=== PATIENT | female | born 1950 | race Caucasian/White ===

== ENCOUNTER 2017-03-03 10:09 | Outpatient (CLI) | payer MEDICARE, OTHER ==
--- NOTE | 2017-03-04 16:09 | Mammography Report ---
DIGITAL SCREENING MAMMOGRAM: 03/03/2017 CLINICAL INDICATION: A 66-year-old, for screening. COMPARISON: 10/2012, 09/2009. TECHNIQUE: Routine CC and MLO projections were obtained of the breasts. FINDINGS: Parenchymal tissue within the breasts is predominantly fatty replaced. There are no domina nt masses, suspicious microcalcifications, or secondary signs of malignancy. In comparison to the pre vious studies, there are no significant changes. IMPRESSION: NO MAMMOGRAPHIC EVIDENCE OF MALIGNANCY. NO SIGNIFICANT INTERVAL CHANGES. RECOMMENDATION: Screening mammography is recommended annually. BIRADS category 1 - negative. STANDARD QUALIFYING STATEMENTS 1. This examination was reviewed with the aid of Computed-Aided Detection (CAD). 2. A negative or benign imaging report should not delay biopsy if clinically suspicious findings are present. Consider surgical consultation if warranted. More than 5% of cancers are not identified by i maging. 3. Dense breasts may obscure an underlying neoplasm. JOB #: [id number] EXT JOB #:[id number]
== END 2017-03-03 10:10 | disposition home or self-care (01) ==
LOC: DI.N 10:09
PROVIDERS: ATTEND Family Medicine
DX: Z12.31 Encounter for screening mammogram for malignant neoplasm of breast (principal)
CPT/HCPCS: 77067

== ENCOUNTER 2017-03-19 07:01 | Day surgery (SDC) | payer MEDICARE, OTHER ==
[2017-03-19] MEDS ORDERED: LACTATED RINGERS 1,000 ML IV ONE (07:38)
[2017-03-19] MEDS ORDERED: BENZOCAINE/TETRACAINE/BUTAMBEN SPRAY 56 GM TOP ONE (08:09)
[2017-03-19] MEDS ORDERED: PROPOFOL 200 MG/20 ML VIAL IVP ONE (08:40)
[2017-03-19] MEDS ORDERED: LIDOCAINE-MPF 2% 5 ML VIAL IM ONE (08:40)
[2017-03-19] MEDS ORDERED: ePHEDrine 50 MG/ML AMP IVP ONE (08:40)
[2017-03-19 09:58] VITALS: BP 146/60
== END 2017-03-19 07:02 | disposition home or self-care (01) ==
LOC: SDS 07:01
PROVIDERS: ATTEND Surgery
PROC: 0DB68ZX Excision of Stomach, Via Natural or Artificial Opening Endoscopic, Diagnostic (ICD-10-PCS; 2017-03-19)
PROC: 0DB38ZX Excision of Lower Esophagus, Via Natural or Artificial Opening Endoscopic, Diagnostic (ICD-10-PCS; 2017-03-19)
PROC: 0DJD8ZZ Inspection of Lower Intestinal Tract, Via Natural or Artificial Opening Endoscopic (ICD-10-PCS; principal; 2017-03-19 08:15)
PROC: 0DB48ZX Excision of Esophagogastric Junction, Via Natural or Artificial Opening Endoscopic, Diagnostic (ICD-10-PCS; 2017-03-19 08:15)
DX: D64.9 Anemia, unspecified (principal); K25.9 Gastric ulcer, unspecified as acute or chronic, without hemorrhage or perforation; K44.9 Diaphragmatic hernia without obstruction or gangrene; K20.9 Esophagitis, unspecified; K57.30 Diverticulosis of large intestine without perforation or abscess without bleeding; K64.8 Other hemorrhoids; K64.4 Residual hemorrhoidal skin tags; E03.9 Hypothyroidism, unspecified; E11.9 Type 2 diabetes mellitus without complications; E78.5 Hyperlipidemia, unspecified; I10 Essential (primary) hypertension
CPT/HCPCS: 43239; 45378; 88305; A9270; J7120

== ENCOUNTER 2017-05-11 12:35 | Outpatient (CLI) | payer MEDICARE, OTHER ==
--- NOTE | 2017-05-11 16:29 | Ultrasound Report ---
RETROPERITONEAL ULTRASOUND: 05/11/2017 CLINICAL INDICATION: Stage III kidney disease. TECHNIQUE: Real-time sonographic vascular imaging was performed by the dairy clerk through the retrop eritoneum utilizing both color-flow and Doppler spectral analysis. Multiple environmental marketing representative static im ages were saved for review. FINDINGS: The right kidney measures 10.1 x 5.2 x 4.4 cm, and the left kidney measures 9.8 x 4.9 x 4. 4 cm. No hydronephrosis is present. Renal cortical echotexture is normal bilaterally. No focal lesion is seen. Prevoid, the bladder measures 7.2 x 6.2 x 5.5 cm, yielding a prevoid volume of 129 mL. Bilateral uret eral jets are visualized. No postvoid residual is present. IMPRESSION: NORMAL RENAL ULTRASOUND. JOB #: [id number] EXT JOB #:[id number]
== END 2017-05-11 12:36 | disposition home or self-care (01) ==
LOC: DI 12:35
PROVIDERS: ATTEND Internal Medicine Nephrology
DX: N18.3 Chronic kidney disease, stage 3 (moderate) (principal)
CPT/HCPCS: 76770

== ENCOUNTER 2020-06-01 07:54 | Outpatient (CLI) | payer MEDICARE, OTHER ==
--- NOTE | 2020-06-04 09:47 | Mammography Report ---
BILATERAL DIGITAL SCREENING MAMMOGRAM 3D/2D: 06/01/2020 CLINICAL: Routine screening. Comparison is made to exams dated: 03/03/2017 mammogram, 11/17/2012 mammogram, and 10/22/2009 mammogram - [facility]. The tissue of both breasts is predominantly fatty. No significant masses, calcifications, or other findings are seen in either breast. There has been no significant interval change. IMPRESSION: NEGATIVE There is no mammographic evidence of malignancy. A 1 year screening mammogram is recommended. This exam was interpreted at Station ID: [id number]. NOTE: For mammograms, a report in lay terms will be sent to the patient. Approximately 15% of breast malignancies will not be visualized mammographically. In the management of a palpable breast mass, a negative mammogram must not discourage biopsy of a clinically suspicious lesion. Electronically Signed By: Neftaly Cee M.D. aty/penrad:06/01/2020 08:53:27 ACR BI-RADS Category 1: Negative 3341F PARENCHYMAL PATTERN: (F) - The breast(s) demonstrate(s) diffuse fatty replacement. BI-RADS CATEGORY: (1) - 1 RECOMMENDATION: (ANNUAL) - Recommend routine annual screening mammography. [id number] 1 year screening LATERALITY: (B)
== END 2020-06-01 07:55 | disposition home or self-care (01) ==
LOC: DI.N 07:54
PROVIDERS: ATTEND Physician Assistant Medical
DX: Z12.31 Encounter for screening mammogram for malignant neoplasm of breast (principal)

== ENCOUNTER 2020-11-21 07:07 | Outpatient (CLI) | payer MEDICARE, OTHER ==
--- NOTE | 2020-11-21 12:05 | CARDIAC PROCEDURE NOTE ---
Stress Test Report Service Date: 11/21/20 Ordering Provider: LOIS Colbert Indication for Test: Fatigue, exertional dyspnea Cardiac Risk Factors: Postmenopausal status, hypertension, diabetes mellitus, hyperlipidemia, family history of early heart disease. Type of Stress Test: Exercise Treadmill Test (ETT) Procedure: After signing informed consent, the patient underwent a Rober-protocol treadmill stress test. No cardiac imaging was ordered but this test. Resting heart rate: 99 Peak HR: 130 (87% predicted maximum heart rate for age) Resting BP: 220/58, patient was allowed to rest until BP improved and the BP cuff adjust and NEW resting BP: 163/59 (despite taking all her usual BP meds) Peak BP: 197/56 Resting O2 saturation: 97% on room air Exercise O2 sat: 82-87% on room air The patient exercised for 4 minutes on a Rober-protocol treadmill stress test. She achieved a peak heart rate of 130 (87% p.m. HR) and 5.85 METS. The patient had no chest pain. She developed shortness of breath easily and was moderately short of breath at peak. She reported her perceived exertion at 16/20 on the Maxwell scale at peak. O2 sat dropped significantly with exercise. Resting EKG: Normal sinus rhythm, rate 99, RSR' in V1 (suggests RV overload or Cor pulmonale). EKG at peak: Non-specific upsloping ST segment depressions inferolaterally. Summary: 1) Resting EKG is abnormal, suggesting right heart overload. 2) No specific changes for coronary ischemia develop by EKG criteria. 3) Significant oxygen desaturation occurs with exercise. 4) Poor exercise tolerance. 5) No cardiac imaging was ordered with this test. IMPRESSION: 1) Negative stress test for coronary ischemia (by EKG criteria). 2) The combination of oxygen desaturation during exercise, and cor pulmonale suspected by EKG, suggest lung disease. 3) This patient's overall cardiac risk: Moderate. RECOMMENDATIONS: 1) PFTs and other pulmonary work-up. 2) Consider referral to Pulmonology. 3) If indicated, a stress test WITH cardiac imaging could be re-checked.
== END 2020-11-21 07:08 | disposition home or self-care (01) ==
LOC: DI 07:07
PROVIDERS: ATTEND Physician Assistant Medical
DX: R06.09 Other forms of dyspnea (principal); R53.83 Other fatigue
CPT/HCPCS: 93306

== ENCOUNTER 2021-09-02 10:38 | Outpatient (CLI) | payer MEDICARE, OTHER ==
--- NOTE | 2021-09-03 01:08 | DEXA Report ---
PROCEDURE: Dexa Spine and/or Hip INDICATIONS: OSTEOPENIA, POST MENOPAUSAL TECHNIQUE: Dual energy x-ray absorptiometry (DXA) was performed on a All Def Digital System. Regions measur ed are the AP Spine, femoral neck, and if needed forearm. COMPARISON: 08/12/2010, . FINDINGS: Lumbar Spine: Bone Mineral Density 1.116 g/cm/cm,T score -0.5, bone density within normal limits. Findings are i mproved from the prior study which demonstrated T score of -2.1. Left Hip: Bone Mineral Density 0.895 g/cm/cm,T score -0.9, lower limits of normal bone density. Decreased dens ity compared to the prior study which demonstrated T score of -0.5. Left Femoral Neck: Bone Mineral Density 0.762 g/cm/cm, T score -2.0, osteopenia. Decreased density compared to the prio r study which demonstrated T score -1.8. (T score greater or equal to -1.0: NORMAL) (T score from -1.1 to -2.4: OSTEOPENIA) (T score less than or equal to -2.5 to: OSTEOPOROSIS) Impression: 1. Interval improved bone mineralization within the lumbar spine which appears within normal limits. 2. Osteopenia in the left femoral neck and borderline osteopenia overall in the left hip, with interv al decrease in density compared to the prior study. Patients with diagnosis of osteoporosis or osteopenia should have regular bone mineral density assess ment. For those eligible for Medicare, routine testing is allowed once every 2 years. Testing frequ ency can be increased for patients who have rapidly progressing disease or for those who are receivin g medical therapy to restore bone mass. Reviewed by: King Meza MD on 09/03/2021 1:07 AM PST Approved by: King Meza MD on 09/03/2021 1:07 AM PST Station ID: [id number]
== END 2021-09-02 10:39 | disposition home or self-care (01) ==
LOC: DI 10:38
PROVIDERS: ATTEND Physician Assistant
DX: Z78.0 Asymptomatic menopausal state (principal); M85.89 Other specified disorders of bone density and structure, multiple sites

== ENCOUNTER 2022-12-04 14:38 | Outpatient (CLI) | payer MEDICARE, OTHER ==
[2022-12-04 15:10] LABS: ALBUMIN 4.1 g/dL (3.2-5.5); ALBUMIN/GLOBULIN RATIO 1.2 (1.0-2.2); BILIRUBIN,TOTAL 0.5 mg/dL (0.2-1.0); CALCIUM 9.4 mg/dL (8.5-10.3); CREATININE 1.9 mg/dL (0.4-1.0); POTASSIUM 5.3 mmol/L (3.5-5.0); TOTAL PROTEIN 7.4 g/dL (6.7-8.2)
== END 2022-12-04 14:39 | disposition home or self-care (01) ==
LOC: LAB 14:38
DX: E87.5 Hyperkalemia (principal)
CPT/HCPCS: 36415; 80053

== ENCOUNTER 2023-06-01 10:26 | Outpatient (CLI) | payer MEDICARE, OTHER ==
[2023-06-01 11:50] LABS: BASOPHILS # (AUTO) 0.1 10^3/uL (0.0-0.1); EOSINOPHILS # (AUTO) 0.2 10^3/uL (0.0-0.7); EOSINOPHILS % (AUTO) 2.6 %; HCT - HEMATOCRIT 35.5 % (37.0-47.0); HGB - HEMOGLOBIN 11.1 g/dL (12.0-16.0); LYMPHOCYTES # (AUTO) 2.2 10^3/uL (1.5-3.5); LYMPHOCYTES % (AUTO) 26.7 %; MEAN CORPUSCULAR HEMOGLOBIN 30.7 pg (27.0-31.0); MEAN CORPUSCULAR HGB CONC 31.3 g/dL (32.0-36.0); MEAN CORPUSCULAR VOLUME 98.3 fL (81.0-99.0); MEAN PLATELET VOLUME 11.6 fL (7.9-10.8); MONOCYTES # (AUTO) 0.6 10^3/uL (0.0-1.0); MONOCYTES % (AUTO) 7.2 %; NEUTROPHILS # (AUTO) 5.1 10^3/uL (1.5-6.6); NEUTROPHILS % (AUTO) 62.3 %; PLT - PLATELET COUNT 219 10^3/uL (130-450); RED BLOOD COUNT 3.61 10^6/uL (4.20-5.40); RED CELL DISTRIBUTION WIDTH 12.6 % (12.0-15.0); WHITE BLOOD COUNT 8.2 x10^3/uL (4.8-10.8)
[2023-06-01 12:30] LABS: ESTIMATED AVERAGE GLUCOSE 154 mg/dL (70-100)
[2023-06-01 12:40] LABS: THYROID STIMULATING HORMONE 2.04 uIU/mL (0.34-5.60)
[2023-06-01 12:47] LABS: FERRITIN 49.1 ng/mL (11.0-306.8)
[2023-06-01 12:54] LABS: % IRON SATURATION 17 % (20-50); ALBUMIN 4.3 g/dL (3.2-5.5); ALBUMIN/GLOBULIN RATIO 1.7 (1.0-2.2); ALKALINE PHOSPHATASE 53 IU/L (42-121); ALT ALANINE AMINOTRANSFERASE 9 IU/L (10-60); AST ASPARTATE AMINOTRANSFERASE 13 IU/L (10-42); BILIRUBIN,TOTAL 0.5 mg/dL (0.2-1.0); BUN - BLOOD UREA NITROGEN 40 mg/dL (6-20); CALCIUM 10.3 mg/dL (8.5-10.3); CARBON DIOXIDE - CO2 27 mmol/L (21-32); CHLORIDE 102 mmol/L (101-111); CHOL/HDL RATIO 2.9 (<4.4); CHOLESTEROL 178 mg/dL; CREATININE 1.9 mg/dL (0.6-1.3); GFR - MDRD 26 (>89); GLUCOSE 168 mg/dL (74-104); HDL CHOLESTEROL 62 mg/dL; IRON 57 ug/dL (50-212); LDL CHOLESTEROL,CALCULATED 80 mg/dL; LDL/HDL RATIO 1.3 (<4.4); POTASSIUM 4.9 mmol/L (3.5-4.5); SODIUM 137 mmol/L (135-145); TOTAL IRON BINDING CAPACITY 340 ug/dL (250-450); TOTAL PROTEIN 6.8 g/dL (6.4-8.9); TRANSFERRIN 243 mg/dL (203-362); TRIGLYCERIDES 178 mg/dL (48-352); VLDL CHOLESTEROL 36 mg/dL
[2023-06-01 18:15] LABS: CREATININE,URINE 181.8 mg/dL; MICROALBUM/CREATININE RATIO,UR 79.2 ug/mg (<30.0); MICROALBUMIN,URINE 14.4 mg/dL
== END 2023-06-01 10:27 | disposition home or self-care (01) ==
LOC: LAB.N 10:26
PROVIDERS: ATTEND Nurse Practitioner
DX: E11.9 Type 2 diabetes mellitus without complications (principal); D64.9 Anemia, unspecified; E03.9 Hypothyroidism, unspecified
CPT/HCPCS: 36415; 80053; 80061; 82043; 82570; 82607; 82728; 83036; 83540; 83721; 84439; 84443; 84466; 85025

== ENCOUNTER 2023-07-15 10:14 | Outpatient (CLI) | payer MEDICARE, OTHER ==
[2023-07-15 13:00] LABS: CALCIUM 10.1 mg/dL (8.5-10.3); ESTIMATED AVERAGE GLUCOSE 166 mg/dL (70-100); HEMOGLOBIN A1c% 7.4 % (4.27-6.07); POTASSIUM 5.2 mmol/L (3.5-4.5)
== END 2023-07-15 10:15 | disposition home or self-care (01) ==
LOC: LAB.N 10:14
PROVIDERS: ATTEND Nurse Practitioner
DX: I10 Essential (primary) hypertension (principal); Z51.81 Encounter for therapeutic drug level monitoring; E11.9 Type 2 diabetes mellitus without complications
CPT/HCPCS: 36415; 80048; 83036

== ENCOUNTER 2023-10-28 09:44 | Outpatient (CLI) | payer MEDICARE, OTHER ==
[2023-10-28 12:16] LABS: CALCIUM 11.1 mg/dL (8.5-10.3); CREATININE 1.8 mg/dL (0.6-1.3); POTASSIUM 4.7 mmol/L (3.5-4.5)
[2023-10-28 12:21] LABS: CREATININE,URINE 86.2 mg/dL; MICROALBUM/CREATININE RATIO,UR 83.5 ug/mg (<30.0); MICROALBUMIN,URINE 7.2 mg/dL
== END 2023-10-28 09:45 | disposition home or self-care (01) ==
LOC: LAB.N 09:44
PROVIDERS: ATTEND Internal Medicine Nephrology
DX: N18.32 Chronic kidney disease, stage 3b (principal)
CPT/HCPCS: 36415; 80048; 82043; 82570

== ENCOUNTER 2024-01-21 12:59 | Outpatient (CLI) | payer MEDICARE, OTHER ==
[2024-01-21 17:51] LABS: BASOPHILS # (AUTO) 0.2 10^3/uL (0.0-0.1); BASOPHILS % (AUTO) 1.6 %; EOSINOPHILS # (AUTO) 0.8 10^3/uL (0.0-0.7); EOSINOPHILS % (AUTO) 7.3 %; HCT - HEMATOCRIT 39.5 % (37.0-47.0); HGB - HEMOGLOBIN 12.2 g/dL (12.0-16.0); LYMPHOCYTES # (AUTO) 2.5 10^3/uL (1.5-3.5); LYMPHOCYTES % (AUTO) 22.4 %; MEAN CORPUSCULAR HEMOGLOBIN 29.6 pg (27.0-31.0); MEAN CORPUSCULAR HGB CONC 30.9 g/dL (32.0-36.0); MEAN CORPUSCULAR VOLUME 95.9 fL (81.0-99.0); MEAN PLATELET VOLUME 13.1 fL (7.9-10.8); MONOCYTES # (AUTO) 0.8 10^3/uL (0.0-1.0); MONOCYTES % (AUTO) 6.9 %; NEUTROPHILS # (AUTO) 6.7 10^3/uL (1.5-6.6); NEUTROPHILS % (AUTO) 61.5 %; PLT - PLATELET COUNT 210 10^3/uL (130-450); RED BLOOD COUNT 4.12 10^6/uL (4.20-5.40); RED CELL DISTRIBUTION WIDTH 13.5 % (12.0-15.0); WHITE BLOOD COUNT 10.9 x10^3/uL (4.8-10.8)
[2024-01-21 18:12] LABS: ALBUMIN 4.3 g/dL (3.2-5.5); ALBUMIN/GLOBULIN RATIO 1.6 (1.0-2.2); ALKALINE PHOSPHATASE 58 IU/L (42-121); ALT ALANINE AMINOTRANSFERASE 11 IU/L (10-60); AST ASPARTATE AMINOTRANSFERASE 14 IU/L (10-42); BILIRUBIN,TOTAL 0.5 mg/dL (0.2-1.0); BUN - BLOOD UREA NITROGEN 48 mg/dL (6-20); CALCIUM 10.1 mg/dL (8.5-10.3); CARBON DIOXIDE - CO2 28 mmol/L (21-32); CHLORIDE 103 mmol/L (101-111); CREATININE 1.5 mg/dL (0.6-1.3); CRP - C-REACTIVE PROTEIN < 0.5 mg/dL (<0.5); GFR - MDRD 34 (>89); GLUCOSE 139 mg/dL (74-104); POTASSIUM 4.4 mmol/L (3.5-4.5); SODIUM 138 mmol/L (135-145)
[2024-01-21 18:13] LABS: PHOSPHORUS 3.6 mg/dL (2.5-5.0)
[2024-01-21 18:29] LABS: THYROID STIMULATING HORMONE 0.42 uIU/mL (0.34-5.60)
[2024-01-21 22:18] LABS: ESTIMATED AVERAGE GLUCOSE 151 mg/dL (70-100); HEMOGLOBIN A1c% 6.9 % (4.27-6.07)
== END 2024-01-21 13:00 | disposition home or self-care (01) ==
LOC: LAB.N 12:59
PROVIDERS: ATTEND Internal Medicine Nephrology
DX: E83.52 Hypercalcemia (principal); I10 Essential (primary) hypertension; R41.3 Other amnesia; R53.83 Other fatigue; E11.9 Type 2 diabetes mellitus without complications
CPT/HCPCS: 36415; 80053; 81599; 82040; 82306; 82397; 82607; 82784; 83036; 83970; 84100; 84155; 84165; 84443; 85025; 85651; 86140; 86334

== ENCOUNTER 2024-03-01 08:10 | Outpatient (CLI) | payer MEDICARE, OTHER ==
--- NOTE | 2024-03-02 13:17 | XRAY Report ---
PROCEDURE: Hip w/Pelvis 2-3V RT INDICATIONS: PAIN IN RIGHT HIP TECHNIQUE: 2 views of the hip were acquired. COMPARISON: None. FINDINGS: Bones: No fractures or dislocations. No suspicious bony lesions. Moderate joint space narrowing Soft tissues: No suspicious soft tissue calcifications or masses. Dense atherosclerotic vascular milad cification IMPRESSION: Moderate to bilateral acetabular joint space narrowing. Dense atherosclerotic vascular calcification Reviewed by: Rory Whitaker MD on 03/02/2024 12:15 PM AKDT Approved by: Rory Whitaker MD on 03/02/2024 12:15 PM AKDT Station ID: [id number]
== END 2024-03-01 08:11 | disposition home or self-care (01) ==
LOC: DI.N 08:10
PROVIDERS: ATTEND Nurse Practitioner
DX: M25.551 Pain in right hip (principal); S76.311A Strain of muscle, fascia and tendon of the posterior muscle group at thigh level, right thigh, initial encounter; M25.851 Other specified joint disorders, right hip